=== PATIENT | male | born 1955 | race Caucasian/White ===

== ENCOUNTER → 2019-09-10 16:27 | Outpatient (CLI) | payer OTHER, SELFPAY ==
--- NOTE | ~2019-09-10 | MR_ITS ---
EXAMINATION: MR cervical spine wo [facility] EXAM DATE: 09/10/2019 17:17 INDICATION: Bilateral leg weakness. Arm weakness. Dorsalgia. TECHNIQUE: Multi-sequential, multiplanar MR images of the cervical spine were obtained without contra st. Axial T2, axial T2 MERGE sequence. Sagittal T1, T2, T2 fat saturation images also obtained. Th ere is no prior study for comparison. FINDINGS: There is moderate disc disease at C6-7, mild mid cervical levels above this. The vertebral bodies are aligned in the AP dimension. The spinal cord signal intensity and intrinsic morphology is normal. Cervicomedullary junction is normal in appearance. There are scattered focal signal abnor malities consistent with hemangiomata, otherwise without focal suspicious marrow signal abnormalities . Paraspinal soft tissue is unremarkable. Level by level evaluation: C2-C3: Disc does not extend beyond the endplate margin. Uncovertebral joint arthropathy: None. Facet joint arthropathy: Mild bilateral. Neural foraminal stenosis: No stenosis. Central canal stenosis: No stenosis. C3-C4: There is a mild diffuse disc bulge. Uncovertebral joint arthropathy: Mild bilateral. Facet joint arthropathy: Mild to moderate bilateral. Neural foraminal stenosis: Mild bilateral. Central canal stenosis: No stenosis. C4-C5: Disc does not extend beyond the endplate margin. Uncovertebral joint arthropathy: Mild bilateral. Facet joint arthropathy: Moderate right, mild to moderate left. Neural foraminal stenosis: Mild bilateral. Central canal stenosis: No stenosis. C5-C6: There is a minimal diffuse disc bulge. Uncovertebral joint arthropathy: Mild to moderate bilateral. Facet joint arthropathy: Moderate bilateral. Neural foraminal stenosis: Mild bilateral. Central canal stenosis: No stenosis. C6-C7: There is a mild diffuse disc bulge. Uncovertebral joint arthropathy: Moderate left, mild to moderate right. Facet joint arthropathy: Mild to moderate bilateral. Neural foraminal stenosis: Moderate left, mild to moderate right. Central canal stenosis: Mild. C7-T1: Disc does not extend beyond the endplate margin. Uncovertebral joint arthropathy: Mild to moderate bilateral. Facet joint arthropathy: Mild to moderate bilateral. Neural foraminal stenosis: Mild left. Central canal stenosis: No stenosis. IMPRESSION: C6-7 moderate spondylosis, lesser at other levels. Reviewed, dictated and finalized at location D. HER HAND
== END ==
PROVIDERS: Visit Provider Family Medicine
DX: M47.812 Spondylosis without myelopathy or radiculopathy, cervical region (principal)
CPT/HCPCS: 72141

== ENCOUNTER 2022-02-09 08:59 | Outpatient (CLI) | payer MEDICARE, SELFPAY ==
--- NOTE | ~2022-02-09 | XR_ITS ---
EXAMINATION: XR chest 2V Exam Date/Time: 02/09/2022 9:31 CDT HISTORY: PROSTATE CANCER Comparison: None available. RESULT: Lines, tubes, and devices: None. Lungs and pleura: 6 mm left lower lobe pulmonary nodule. Cardiomediastinal silhouette: Stable cardiomediastinal silhouette. Other: No acute osseous or upper abdominal finding. IMPRESSION: 6 mm left lower lobe pulmonary nodule. Recommend CT of the chest without contrast for further evaluat ion. Reviewed, dictated and finalized at location K. IMPRESSION: 6 mm left lower lobe pulmonary nodule. Recommend CT of the chest without contra st for further evaluation.
--- NOTE | ~2022-02-09 | CT_ITS ---
EXAMINATION: CT abdomen pelvis w con DATE: 02/09/2022 09:58 INDICATION: Prostate cancer TECHNIQUE: Computed tomography (CT) of the abdomen and pelvis was performed with 100 CC Omnipaque 300 intravenous contrast. Automated exposure control and iterative reconstruction technique were employe d. Exam dose: 399.14 mGy-cm total exam DLP. COMPARISON: None. FINDINGS: The lung bases are clear. Normal heart size. No pericardial or pleural effusion. The liver, gallbladder, bile ducts, spleen, pancreas and pancreatic duct are unremarkable. Normal morphology of the adrenal glands. Occasional bilateral renal cysts, the largest on the right measuring approximately 1.3 cm, the larges t on the right approximately 1 cm. No suspicious mass of either kidney is noted. No urinary tract makeda culus or hydroureteronephrosis. There is moderate prostatomegaly and minimal prostate calcification. The urinary bladder appears unre markable. Small bilateral fat-containing inguinal hernias. Normal caliber of the abdominal aorta. No intraperitoneal or retroperitoneal or pelvic mass lesion or adenopathy or ascites. There are some shoddy nonenlarged bilateral inguinal lymph nodes. Diverticulosis of the colon, including multiple diverticula of the colon in the hepatic flexure area primarily. No CT evidence of diverticulitis. No bowel obstruction or intraperitoneal free air. Degenerative spurring of the lower thoracic and to a lesser extent lumbar spine. No suspicious osteol ytic or osteoblastic lesions. IMPRESSION: Occasional bilateral renal cysts Diverticulosis of the colon; no evidence of diverticulitis Moderate prostatomegaly Small bilateral fat-containing inguinal hernias Reviewed, dictated and finalized at Location A. Reviewed, dictated and finalized at location B.
== END 2022-02-09 09:00 | disposition home or self-care (01) ==
PROVIDERS: PCP Family Medicine; Visit Provider Urology
DX: C61 Malignant neoplasm of prostate (principal); N28.1 Cyst of kidney, acquired; K57.90 Diverticulosis of intestine, part unspecified, without perforation or abscess without bleeding; N40.0 Benign prostatic hyperplasia without lower urinary tract symptoms; K40.90 Unilateral inguinal hernia, without obstruction or gangrene, not specified as recurrent; R91.1 Solitary pulmonary nodule
CPT/HCPCS: 71046; 74177; Q9967

== ENCOUNTER 2022-02-25 08:22 | Outpatient (CLI) | payer MEDICARE, SELFPAY ==
--- NOTE | ~2022-02-25 | NM_ITS ---
EXAMINATION: NM bone scan whole body DATE: 02/25/2022 11:52 INDICATION: Prostate cancer TECHNIQUE: 25.6 mCi Tc-99m HDP was administered intravenously. Delayed whole-body scintigrams were o btained. COMPARISON: Chest CT dated 02/25/2022 FINDINGS: Extravasated soft tissue activity at the site of injection at the right wrist. Likely degenerative madison int centered uptake at the bilateral acromioclavicular joints, the cervical facet joints in the right lower cervical spine, the right knee and right first metatarsophalangeal joint. No other suspicious foci of abnormal uptake to suggest osseous metastatic disease. IMPRESSION: 1. Typical pattern of scattered mild likely degenerative joint centered uptake. No lesion suspicious for metastatic disease. Reviewed, dictated and finalized at location B.
--- NOTE | ~2022-02-25 | CT_ITS ---
EXAMINATION: CT diagnostic chest wo con DATE: 02/25/2022 08:50 INDICATION: 6 mm left lower lobe pulmonary nodule reported on 02/09/2022 2 view chest Prostate cancer. TECHNIQUE: Computed tomography (CT) of the chest was performed without intravenous contrast. Automate d exposure control and iterative reconstruction technique were employed. Exam dose: 168.71 mGy-cm to daryl exam DLP. COMPARISON: 2 view chest FINDINGS: There is a 6 Minor calcified nodule in the peripheral aspect of the lingula anterolaterall y, consistent with calcified pulmonary granuloma, corresponding to the 6 mm nodular density noted on the 02/09/2022 chest radiographic examination. Occasional bilateral likely benign small nodules: 2 mm pleural-based nodular density, left upper lobe (series 4 image 29). 2.6 mm pleura-based peripheral left upper lobe nodular density (image 43). 2 mm right lower lobe pulmonary nodule (image 68). 3 mm pleural-based opacity, right lower lobe (image 70). No pulmonary infiltrate or consolidation. No hilar or mediastinal mass lesion or lymphadenopathy. No thoracic aortic aneurysm. Normal heart siz e. No pericardial or pleural effusion. Normal morphology of the adrenal glands. Diffuse idiopathic skeletal hyperostosis of the thoracic spine. No suspicious osteolytic or osteoscle rotic lesions. IMPRESSION: 6 mm benign calcified lingular granuloma; no further follow-up of this lesion is require d Occasional bilateral 3 mm or smaller pulmonary nodules; consider [address] thorax follow-up Reviewed, dictated and finalized at Location A. Reviewed, dictated and finalized at location A. IMPRESSION: 6 mm benign calcified lingular granuloma; no further follow-up of this lesion is required Occasional bilateral 3 mm or smaller pulmonary nodules; consider [address] orax follow-up
== END 2022-02-25 08:23 | disposition home or self-care (01) ==
LOC: ANHIMG 08:28
PROVIDERS: PCP Family Medicine; Visit Provider Urology
DX: C61 Malignant neoplasm of prostate (principal); R91.1 Solitary pulmonary nodule
CPT/HCPCS: 71250; 78306; A9561

== ENCOUNTER 2022-10-14 13:31 | Outpatient (CLI) | payer MEDICARE, SELFPAY ==
[2022-10-14 14:27] LABS: Influenza A QL RT-PCR Negative (Negative); Influenza B QL RT-PCR Negative (Negative); RSV RNA, RT-PCR Negative (Negative); SARS-CoV-2 RNA PCR Negative
== END 2022-10-14 13:32 | disposition home or self-care (01) ==
PROVIDERS: PCP Family Medicine; Visit Provider Family Medicine
DX: R68.89 Other general symptoms and signs (principal); Z20.822 Contact with and (suspected) exposure to COVID-19
CPT/HCPCS: 87637

== ENCOUNTER 2023-11-08 13:45 | Outpatient (CLI) | payer MEDICARE, SELFPAY ==
[2023-11-08 19:45] LABS: Prostate Specific Antigen 7.2 ng/mL (< OR = 4.0)
== END 2023-11-08 13:46 | disposition home or self-care (01) ==
LOC: ANHGOSHLAB 13:48
PROVIDERS: PCP Family Medicine; Visit Provider Urology
DX: C61 Malignant neoplasm of prostate (principal)
CPT/HCPCS: 36415; 84153

== ENCOUNTER 2024-06-03 10:47 | Emergency (ER) | payer MEDICARE, SELFPAY ==
--- NOTE | ~2024-06-03 | XR_ITS ---
Clinical Indication: Cough PA and lateral views of the chest: Comparison: 02/09/2022 Findings: The lungs are clear, without evidence of focal consolidation or pleural effusion. Cardiome diastinal silhouette is within normal limits. Bones and soft tissues are unremarkable. Impression: Normal chest. Reviewed, dictated and finalized at location . Impression: Normal chest.
[2024-06-03 11:10] VITALS: BP 124/65; PULSE 71; RESP 16; TEMP 37.1; O2SAT 99
--- NOTE | 2024-06-03 11:22 | ED.URI ---
HPI - URI/Sore Throat General Chief Complaint: Upper Respiratory Infection Stated Complaint: Upper Respiratory Problems Time Seen by Provider: 06/03/24 11:23 Source: patient, RN notes reviewed and old records reviewed Mode of arrival: ambulatory Limitations: no limitations History of Present Illness HPI Narrative: 69-year-old male presents to the [facility] with complaints a cough and left ear discomfort that started Tuesday or , 3-4 days. No treatment prior to arrival Reports that he has been exposed to pneumonia Onset (ago): day(s) (3-4) Treatments prior to arrival: none Related Data Allergies Allergy/AdvReac Type Severity Reaction Status Date / Time No Known Allergies Allergy Verified 06/03/24 11:01 Review of Systems Review of Systems: All systems reviewed & are unremarkable except as noted in HPI and below Constitutional: Constitutional: Reports no additional constitutional complaints ENT: Reports system reviewed and no additional complaints, except as documented Cardiovascular: Cardiovascular: Reports no additional cardiovascular complaints, Denies chest pain and Denies dyspnea Respiratory: Respiratory: Reports as per HPI, Denies chest congestion, Reports cough and Denies dyspnea Gastrointestinal: Gastrointestinal: Reports no additional gastrointestinal complaints, Denies abdominal pain, Denies nausea and Denies vomiting Musculoskeletal: Musculoskeletal: Reports no additional musculoskeletal complaints Integumentary/Breasts: Skin/Breast: Reports system reviewed and no additional complaints, except as docu PMFSH Past Medical History Medical History Prostate cancer Surgical History Surgical History History of repair of rotator cuff Hx of tonsillectomy Family History Family History Mother Hypertension Father Family history of elevated blood lipids, Onset Age: 76 Malignant neoplasm of prostate, Onset Age: 76 Other Family history of cardiovascular disease No family history of diabetes mellitus No family history of malignant neoplasm Social History Social History Social History: caffeine- none daily Smoking status: Former smoker Tobacco type: cigarettes Alcohol intake: current Alcohol use details: occasionnally Substance use: never Substance use type: does not use Lack of Transportation: No Lack of Food: Never True Current Housing: I Have Housing Concerned About Future Housing: No Difficulty Paying Gas/Electric Bills: No Difficulty Paying for Meds: No Currently Unemployed: YES Education: High School Diploma/GED Difficulty w/ Childcare or Family Care: No Living arrangements: with family Additional living arrangements comments: Additional occupation/education comments: Self employed Gender identity (if verbalized by the patient): Male Sexual Orientation (if Verbalized by the Patient): Straight or Heterosexual Agree to blood products: Yes Comments At the time of my signature, I reviewed and agree with the nursing past medical, surgical, social, and family history. There is no relevant family history pertinent to the patient complaint. Exam Const: General: cooperative, healthy appearing, comfortable, no acute distress, well developed, alert and well nourished Nutritional Appearance: well nourished Orientation/consciousness: patient oriented x3 Limitations: no limitations HENMT: Head: normal to inspection Ears: hearing grossly normal bilaterally, external ears normal, EAC's normal, mastoids normal, no periauricular adenopathy and TM abnormal bulging bilateral and with fluid behind the TM bilateral; not erythematous Face/Nose/Sinus: Normal external nose present, normal facial exam and face symmetric Face and sinu
== END 2024-06-03 11:44 | disposition home or self-care (01) ==
PROVIDERS: Emergency Provider Nurse Practitioner; PCP Family Medicine
DX: J06.9 Acute upper respiratory infection, unspecified (principal); R05.1 Acute cough; Z87.891 Personal history of nicotine dependence; Z85.46 Personal history of malignant neoplasm of prostate
CPT/HCPCS: 71046; 99213; G0463

== ENCOUNTER 2024-06-18 09:48 | Outpatient (CLI) | payer MEDICARE, SELFPAY ==
[2024-06-18 20:29] LABS: Prostate Specific Antigen 7.3 ng/mL (< OR = 4.0)
== END 2024-06-18 09:49 | disposition home or self-care (01) ==
LOC: ANHGOSHLAB 09:50
PROVIDERS: PCP Family Medicine; Visit Provider Urology
DX: C61 Malignant neoplasm of prostate (principal)
CPT/HCPCS: 36415; 84153

== ENCOUNTER 2024-10-10 07:58 | Outpatient (CLI) | payer MEDICARE, SELFPAY ==
--- OUTSIDE RECORDS SUMMARY | 2024-10-10 08:06 | XMS_ITS | Patient Health Summary ---
Author Organization [facility] Address [address] [place] [address] Care Team Providers Care Manipulator Operator Name Role Phone Guillermo Mendoza MD Primary Care Provider [phone] Note from [facility],non-owned Affiliates and Associated Physician Practices is amultiple site organization consisting of ambulatory clinics and hospital sitesin [place], [place], [place] and [place]. This disclosure is being madepursuant to the Care Everywhere program and may not contain all information available regarding this patient. Last updated 18.[facility] Social History Tobacco Use Types Packs/Day Years Used Date Smoking Tobacco: Never Assessed Sex and Gender Information Value Date Recorded Sex Assigned at Not on file Gender Identity Not on file Sexual Orientation Not on file Procedures * PATH CONSULT ON REFERRED CASE(Performed 12/22/2021) Performed for Illness, unspecified Results * PATH CONSULT ON REFERRED CASE (12/22/2021 10:46 AM CDT) Final Diagnosis PROSTATE, LLB, NEEDLE BIOPSY (OSC: [id number], A; 12/22/2021): - Prostatic adenocarcinoma, carter score 3 + 3 = 6 (grade group 1), involving 10% of core length PROSTATE, LLM, NEEDLE BIOPSY (OSC: [id number], B; 12/22/2021): - Benign prostatic tissue PROSTATE, LLA, NEEDLE BIOPSY (OSC: [id number], C; 12/22/2021): - Prostatic adenocarcinoma, carter score 3 + 3 = 6 (grade group 1), discontinuously involving 50% of core length PROSTATE, LB, NEEDLE BIOPSY (OSC: [id number], D; 12/22/2021): - Prostatic adenocarcinoma, carter score 3 + 3 = 6 (grade group 1), involving 10% of core length PROSTATE, LM, NEEDLE BIOPSY (OSC: [id number], E; 12/22/2021): - Benign prostatic tissue PROSTATE, LA, NEEDLE BIOPSY (OSC: [id number], F; 12/22/2021): - Prostatic adenocarcinoma, carter score 3 + 3 = 6 (grade group 1), involving 10% of core length PROSTATE, RB, NEEDLE BIOPSY (OSC: [id number], G; 12/22/2021): - Benign prostatic tissue PROSTATE, RM, NEEDLE BIOPSY (OSC: [id number], H; 12/22/2021): - Benign prostatic tissue PROSTATE, RA, NEEDLE BIOPSY (OSC: [id number], I; 12/22/2021): - Benign prostatic tissue PROSTATE, RLB, NEEDLE BIOPSY (OSC: [id number], J; 12/22/2021): - Prostatic adenocarcinoma, carter score 3 + 3 = 6 (grade group 1), involving 40% of core length PROSTATE, RLM, NEEDLE BIOPSY (OSC: [id number], K; 12/22/2021): - Benign prostatic tissue PROSTATE, RLA, NEEDLE BIOPSY (OSC: [id number], L; 12/22/2021): - Benign prostatic tissue 12/25/2021 4:47 PM [facility] Clinical History PSA 4.0, PROSTATE VOLUME 27.3, T1C 12/25/2021 4:47 PM [facility] Materials Received Received are three prepared slides from [facility] [place] [facility] labeled [id number] (A1-C1). This is a 12-part prostate biopsy. All materials will be returned. 12/25/2021 4:47 PM [facility] Disclaimer The performance characteristics of all immunohistochemical and indirect immunofluorescence stains (if any) cited in this report were determined by the Histopathology Laboratory of [facility]. Some of these tests were developed by our own laboratory and have not been cleared or approved by the US Food and Drug Administration. The FDA does not require this test to go through premarket FDA review. These tests are used for clinical purposes. They should not be regarded as investigational or for research. This laboratory is certified under the Clinical Laboratory Improvement Amendments (CLIA) as qualified to perform high complexity clinical laboratory testing. This case has been personally reviewed and interpreted by the attending (teaching) pathologist. 12/25/2021 4:47 PM CDT [facility] Case Report Surgical Pathology Report Case: [id number] Authorizing Provider: Gema Chandra MD Collected: 12/22/2021 10:46 AM Ordering Location: [facility] Received: 12/25/2021 10:46 AM Pathologist: Louann Sandoval MD Specimen: Slide Consultation 12/25/2021 4:47 PM CDT [facility] Embedded Images 12/25/2021 4:47 PM CDT [facility] Pathology/Cytolo gy SURGICAL PATHOLOGY CONSULTATION AND REPORT ON REFERRED SLIDES PREPARED ELSEWHERE / Unknown 12/22/2021 10:46 AM CDT 12/25/2021 10:46 AM CDT Gema Chandra MD LAB - PATHOLOGY/CYTO LOGY ORDERABLES Performing Organization Address City/State/[facility] Co de Phone Number [facility] [address] [phone] Care Teams Manipulator Operator Relationship Specialty Start Date End Date Guillermo Mendoza MD [address] [place] [address] PCP - General 12/18/21
--- OUTSIDE RECORDS SUMMARY | 2024-10-10 08:06 | XMS_ITS | Clinical Summary ---
Author Organization [facility] Address [address] [place] [id number] Care Team Providers Care Road Machine Operator Name Role Phone None, Provider MD Primary Care Provider Unavaila ble Social History Tobacco Use Types Packs/Day Years Used Date Smoking Tobacco: Never Assessed Sex and Gender Information Value Date Recorded Sex Assigned at Not on file Legal Sex Male 1:38 PM CDT Gender Identity Not on file Sexual Orientation Not on file Plan of Treatment Health Maintenance Due Date Last Done Comments Colorectal Cancer Screening Colonoscopy (10 Years) 1957 Hepatitis C 1975 DTaP, Tdap and Td Vaccines ( 1 - Tdap) 01/18/1976 Zoster Vaccines (1 of 2) 2007 Annual Medicare Wellness Visit 2022 Pneumococcal Vaccine: 65+ Years (1 of 1 - PCV) 2022 COVID-19 Vaccine ( - 2023-2 5 season) 2024 07/10/2021, 11/10/2020, 10/13/2020 Influenza Adult (#1) 2024 06/30/2021, 07/10/2019, 06/09/2018 RSV Immunization or 60+ Years (1 - 1-dose 75+ series) 01/18/2032 Meningococcal B Vaccine Aged Out No l onger eligible based on patient's age to complete this topic Meningococcal Vaccine Aged Out No yarelsi lizbeth eligible based on patient's age to complete this topic RSV Immunizations Under 20 Months Aged Out No longer eligible b ased on patient's age to complete this topic Insurance MEDICARE [facility] Care Teams Road Machine Operator Relationship Specialty Start Date End Date None, Provider, PCP - General 05/05/22
--- OUTSIDE RECORDS SUMMARY | 2024-10-10 08:06 | XMS_ITS | Clinical Summary ---
Author Organization [facility] Address [address] [place] [address] Care Team Providers Care Director Of National Sales Name Role Phone Guillermo Mendoza MD Primary Care Provider [phone] Source Comments [facility],non-owned Affiliates and Associated Physician Practices is amultiple site organization consisting of ambulatory clinics and hospital sitesin [place], [place], [place] and [place]. This disclosure is being madepursuant to the Care Everywhere program and may not contain all information available regarding this patient. Last updated 18.[facility] Social History Tobacco Use Types Packs/Day Years Used Date Smoking Tobacco: Never Assessed Sex and Gender Information Value Date Recorded Sex Assigned at Not on file Gender Identity Not on file Sexual Orientation Not on file Plan of Treatment Health Maintenance Due Date Last Done Comments COLOGUARD (AGES 45-75) - COL ON CA SCREENING 1957 COLON MONITORING 1957 COLONOSCOPY - COLON CA SCREENING 1957 CT COLONOGRAPHY - COLON CA SCREENING 1955 Colorectal Cancer Screening 1957 FIT - COLON CA SCREENING 1957 FLEX SIG - COLON CA SCREENING 1957 LIPID TESTING 1957 HEPATITIS C SCREENING 01/13/1975 DTAP/TDAP/TD VACCINES (1 - Tdap) 01/18/1976 PNEUMOCOCCAL VACCINE 50+ (1 of 1 - PCV) 2007 ZOSTER VACCINE (1 of 2) 2007 COVID-19 VACCINE ( - 2023-2 5 season) 2024 INFLUENZA VACCINE (#1) 2024 DEPRESSION SCREENING 08/15/2024 Respiratory Syncytial Virus (RSV) Vaccine Pt: or over 60 yrs (1 - 1-dose 75+ series) 01/18/2032 HEPATITIS B VACCINE Aged Out No longe r eligible based on patient's age to complete this topic HIB VACCINE Aged Out No longer eligi ble based on patient's age to complete this topic HPV VACCINE Aged Out No longer eligi ble based on patient's age to complete this topic MENINGOCOCCAL (Group B) VACCINE Aged Out No longer eligible based on patient's age to complete this topic MENINGOCOCCAL VACCINE Aged Out No yarelis lizbeth eligible based on patient's age to complete this topic Care Teams Director Of National Sales Relationship Specialty Start Date End Date Guillermo Mendoza MD [address] [place] [address] PCP - General 12/18/21
--- OUTSIDE RECORDS SUMMARY | 2024-10-10 08:06 | XMS_ITS | Encounter Summary ---
Author Organization [facility] Address [address] [place] [address] Care Team Providers Care Admissions Clinician Name Role Phone Guillermo Mendoza MD Primary Care Provider [phone] Encounter Details Date Type Department Care Team (Late st Contact Info) Description 12/25/2021 Lab Requisition [facility] Care Pathology Lab [address] [place] [address] Gema Chandra MD [address] [place], [place] [id number] Illness, unspecified Social History Tobacco Use Types Packs/Day Years Used Date Smoking Tobacco: Never Assessed Sex and Gender Information Value Date Recorded Sex Assigned at Not on file Gender Identity Not on file Sexual Orientation Not on file documented as of this encounter Plan of Treatment Not on file documented as of this encounter Procedures Procedure Name Priority Date/Time Associated Diagnosis Comments PATH CONSULT ON REFERRED CASE Routine 12/22/2021 10:46 AM CDT Illness, unspecified documented in this encounter Results * PATH CONSULT ON REFERRED CASE (12/22/2021 10:46 AM CDT) Final Diagnosis PROSTATE, LLB, NEEDLE BIOPSY (OSC: [id number], A; 12/22/2021): - Prostatic adenocarcinoma, carter score 3 + 3 = 6 (grade group 1), involving 10% of core length PROSTATE, LLM, NEEDLE BIOPSY (OSC: [id number], B; 12/22/2021): - Benign prostatic tissue PROSTATE, LLA, NEEDLE BIOPSY (OSC: [id number], C; 12/22/2021): - Prostatic adenocarcinoma, carter score 3 + 3 = 6 (grade group 1), discontinuously involving 50% of core length PROSTATE, LB, NEEDLE BIOPSY (OSC: [id number], D; 12/22/2021): - Prostatic adenocarcinoma, carter score 3 + 3 = 6 (grade group 1), involving 10% of core length PROSTATE, LM, NEEDLE BIOPSY (OSC: [id number], E; 12/22/2021): - Benign prostatic tissue PROSTATE, LA, NEEDLE BIOPSY (OSC: [id number], F; 12/22/2021): - Prostatic adenocarcinoma, carter score 3 + 3 = 6 (grade group 1), involving 10% of core length PROSTATE, RB, NEEDLE BIOPSY (OSC: [id number], G; 12/22/2021): - Benign prostatic tissue PROSTATE, RM, NEEDLE BIOPSY (OSC: [id number], H; 12/22/2021): - Benign prostatic tissue PROSTATE, RA, NEEDLE BIOPSY (OSC: [id number], I; 12/22/2021): - Benign prostatic tissue PROSTATE, RLB, NEEDLE BIOPSY (OSC: [id number], J; 12/22/2021): - Prostatic adenocarcinoma, carter score 3 + 3 = 6 (grade group 1), involving 40% of core length PROSTATE, RLM, NEEDLE BIOPSY (OSC: [id number], K; 12/22/2021): - Benign prostatic tissue PROSTATE, RLA, NEEDLE BIOPSY (OSC: [id number], L; 12/22/2021): - Benign prostatic tissue 12/25/2021 4:47 PM [facility] Clinical History PSA 4.0, PROSTATE VOLUME 27.3, T1C 12/25/2021 4:47 PM [facility] Materials Received Received are three prepared slides from [facility] labeled [id number] (A1-C1). This is a 12-part prostate biopsy. All materials will be returned. 12/25/2021 4:47 PM [facility] Disclaimer The performance characteristics of all immunohistochemical and indirect immunofluorescence stains (if any) cited in this report were determined by the Histopathology Laboratory of [facility]. Some of these tests were developed by [...] attending (teaching) pathologist. 12/25/2021 4:47 PM CDT [facility] Case Report Surgical Pathology Report Case: [id number] Authorizing Provider: Gema Chandra MD Collected: 12/22/2021 10:46 AM Ordering Location: [facility] Received: 12/25/2021 10:46 AM Pathologist: Louann Sandoval MD Specimen: Slide Consultation 12/25/2021 4:47 PM CDT [facility] Embedded Images 12/25/2021 4:47 PM CDT [facility] Pathology/Cytolo gy SURGICAL PATHOLOGY CONSULTATION AND REPORT ON REFERRED SLIDES PREPARED ELSEWHERE / Unknown 12/22/2021 10:46 AM CDT 12/25/2021 10:46 AM CDT Gema Chandra MD LAB - PATHOLOGY/CYTO LOGY ORDERABLES Performing Organization Address City/State/[facility] Co de Phone Number [facility] [address] [phone] documented in this encounter Visit Diagnoses Diagnosis Illness, unspecified documented in this encounter Care Teams Admissions Clinician Relationship Specialty Start Date End Date Guillermo Mendoza MD [address] [place] [id number] PCP - General 12/18/21 documented as of this encounter
--- OUTSIDE RECORDS SUMMARY | 2024-10-10 08:06 | XMS_ITS | Referral Summary ---
Author Organization [facility] Address [address] [place] [address] Care Team Providers Care Station Installation Supervisor Name Role Phone Guillermo Mendoza MD Primary Care Provider Source Comments [facility],non-owned Affiliates and Associated Physician Practices is amultiple site organization consisting of ambulatory clinics and hospital sitesin [place], [place], [place] and [place]. This disclosure is being madepursuant to the Care Everywhere program and may not contain all information available regarding this patient. Last updated 18.[facility] Social History Tobacco Use Types Packs/Day Years Used Date Smoking Tobacco: Never Assessed Sex and Gender Information Value Date Recorded Sex Assigned at Not on file Gender Identity Not on file Sexual Orientation Not on file Plan of Treatment Not on file Care Teams Station Installation Supervisor Relationship Specialty Start Date End Date Guillermo Mendoza MD [address] [place] [address] PCP - General 12/18/21
[2024-10-10 10:30] LABS: Basophils Percent Auto 0.6 % (0.2-1.2); Eosinophils Absolute Auto 0.2 K/mm3 (0-0.3); Hematocrit 48.1 % (42.0-52.0); Hemoglobin 15.6 g/dL (14.0-18.0); Immature Granulocyte Absolute 0.01 K/mm3 (0.00-0.031); Immature Granulocyte Percent A 0.2 % (0-0.5); Lymphocytes Absolute Auto 1.65 K/mm3 (0.9-3.2); Lymphocytes Percent Auto 31.8 % (18.3-44.2); Mean Corpuscular HGB Conc 32.4 g/dl (32-36); Mean Corpuscular Hemoglobin 29.4 pg (26-34); Mean Corpuscular Volume 90.8 fl (80-100); Mean Platelet Volume 11.6 fl (7.4-10.4); Monocytes Absolute Auto 0.6 K/mm3 (0.1-0.6); Monocytes Percent Auto 11.8 % (2.6-8.5); Neutrophils Absolute Auto 2.7 K/mm3 (1.3-6.7); Neutrophils Percent Auto 51.6 % (45.5-73.1); Platelet Count Result 184 k/mm3 (150-375); Red Cell Distribution Width 12.2 % (11.5-14.5); White Blood Count 5.2 K/mm3 (4.5-10.0)
[2024-10-10 12:02] LABS: Alanine Aminotransferase 44 U/L (6-50); Alkaline Phosphatase 58 U/L (38-126); Anion Gap 8 mmol/L (4-12); Aspartate Amino Transferase 35 U/L (17-59); Bilirubin,Total 0.6 mg/dL (0.2-1.3); Blood Urea Nitrogen 29 mg/dL (9-20); Calcium 9.1 mg/dL (8.4-10.2); Carbon Dioxide 29 mmol/L (22-30); Chloride 103 mmol/L (98-107); Cholesterol 168 mg/dL (0-200); Estimated Glomerular Filt Rate > 60; Glucose 93 mg/dL (65-110); HDL Direct 41 mg/dL; Potassium 4.3 mmol/L (3.4-5.0); Sodium 140 mmol/L (137-145); Triglycerides 86 mg/dL (<150)
[2024-10-10 12:13] LABS: LDL Cholesterol Direct 104 mg/dL
[2024-10-10 19:53] LABS: Hemoglobin A1C 5.4 % (<5.7)
[2024-10-10 20:48] LABS: Vitamin D 25 Hydroxy 26.3 ng/mL
[2024-10-15 16:48] LABS: PSA, Free 0.8 ng/mL; PSA, Total 7.8 ng/mL (< OR = 4.0); Percent Free Prostate Spec Ag 10 % (calc) (>25)
== END 2024-10-10 07:59 | disposition home or self-care (01) ==
PROVIDERS: PCP Family Medicine; Visit Provider Family Medicine
DX: C61 Malignant neoplasm of prostate (principal); E78.5 Hyperlipidemia, unspecified; E53.8 Deficiency of other specified B group vitamins; E55.9 Vitamin D deficiency, unspecified; I10 Essential (primary) hypertension; R73.9 Hyperglycemia, unspecified; Z12.5 Encounter for screening for malignant neoplasm of prostate
CPT/HCPCS: 36415; 80053; 80061; 82306; 82607; 83036; 84153; 84154; 84443; 85025

== ENCOUNTER 2025-06-19 08:15 | Outpatient (CLI) | payer MEDICARE, SELFPAY ==
--- OUTSIDE RECORDS SUMMARY | 2025-06-19 08:23 | XMS_ITS | Clinical Summary ---
Author Organization [facility] Address [address] [place] [address] Care Team Providers Care Qc Chemist Name Role Phone Guillermo Mendoza MD Primary Care Provider [phone] Source Comments [facility],non-owned Affiliates and Associated Physician Practices is amultiple site organization consisting of ambulatory clinics and hospital sitesin [place], [place], [place] and [place]. This disclosure is being madepursuant to the Care Everywhere program and may not contain all information available regarding this patient. Last updated 18.[facility] Social History Tobacco Use Types Packs/Day Years Used Date Smoking Tobacco: Never Assessed Sex and Gender Information Value Date Recorded Sex Assigned at Not on file Legal Sex Male 1:47 PM CDT Gender Identity Not on file [...] 2007 ZOSTER VACCINE (1 of 2) 2007 DEPRESSION SCREENING 08/15/2024 COVID-19 VACCINE (1 - 2023-2 5 season) 2025 INFLUENZA VACCINE (#1) 2025 Respiratory Syncytial Virus (RSV) Vaccine Pt: or [...] to complete this topic MENINGOCOCCAL (Group B) VACC INE SHARED DECISION-MAKING Aged Out No longer eligibl e based on patient's age to complete this topic MENINGOCOCCAL GROUPS A/C/Y/W VACCINE Aged Out No longer eligible b ased on patient's age to complete this topic Care Teams Qc Chemist Relationship Specialty Start Date End Date Guillermo Mendoza MD [address] [place], [place] [id number] PCP - General 12/18/21
--- OUTSIDE RECORDS SUMMARY | 2025-06-19 08:23 | XMS_ITS | Encounter Summary ---
Author Organization [facility] Address [address] [place] [address] Care Team Providers Care Atmospheric Chemist Name Role Phone Guillermo Mendoza MD Primary Care Provider [phone] Encounter Details Date Type Department Care Team (Late st Contact Info) Description 12/25/2021 Lab Requisition [facility] Care Pathology Lab [address] [place] [address] Gema Chandra MD [address] [place], [place] [phone] Illness, unspecified Social History Tobacco Use Types [...] Final Diagnosis PROSTATE, LLB, NEEDLE BIOPSY (OSC: [id number], A; 12/22/2021): - Prostatic adenocarcinoma, carter score 3 + 3 = 6 (grade group 1), involving 10% of core length PROSTATE, LLM, NEEDLE BIOPSY (OSC: [id number], B; 12/22/2021): - Benign prostatic tissue PROSTATE, LLA, NEEDLE BIOPSY (OSC: [id number], C; 12/22/2021): - Prostatic adenocarcinoma, carter score 3 + 3 = 6 (grade group 1), discontinuously involving 50% of core length PROSTATE, LB, NEEDLE BIOPSY (OSC: [id number], D; 12/22/2021): - Prostatic adenocarcinoma, carter score 3 + 3 = 6 (grade group 1), involving 10% of core length PROSTATE, LM, NEEDLE BIOPSY (OSC: [id number], E; 12/22/2021): - Benign prostatic tissue PROSTATE, LA, NEEDLE BIOPSY (OSC: [id number], F; 12/22/2021): - Prostatic adenocarcinoma, carter score 3 + 3 = 6 (grade group 1), involving 10% of core length PROSTATE, RB, NEEDLE BIOPSY (OSC: [id number], G; 12/22/2021): - Benign prostatic tissue PROSTATE, RM, NEEDLE BIOPSY (OSC: [id number], H; 12/22/2021): - Benign prostatic tissue PROSTATE, RA, NEEDLE BIOPSY (OSC: [id number], I; 12/22/2021): - Benign prostatic tissue PROSTATE, RLB, NEEDLE BIOPSY (OSC: [id number], J; 12/22/2021): - Prostatic adenocarcinoma, carter score 3 + 3 = 6 (grade group 1), involving 40% of core length PROSTATE, RLM, NEEDLE BIOPSY (OSC: [id number], K; 12/22/2021): - Benign prostatic tissue PROSTATE, RLA, NEEDLE BIOPSY (OSC: [id number], L; 12/22/2021): - Benign prostatic tissue 12/25/2021 4:47 PM [facility] at 1647 CDT Clinical History PSA 4.0, PROSTATE VOLUME 27.3, T1C 12/25/2021 4:47 PM [facility] Materials Received Received are three prepared slides from [facility] labeled [id number] (A1-C1). This is a 12-part prostate biopsy. All materials will be returned. 12/25/2021 4:47 PM [facility] Disclaimer The performance characteristics of all immunohistochemical and indirect immunofluorescence stains (if any) cited in this report were determined by the Histopathology Laboratory of [facility]. Some of these tests were developed by [...] attending (teaching) pathologist. 12/25/2021 4:47 PM CDT [facility] Case Report Surgical Pathology Report Case: [id number] Authorizing Provider: Gema Chandra MD Collected: 12/22/2021 10:46 AM Ordering Location: [facility] Received: 12/25/2021 10:46 AM Pathologist: Louann Sandoval MD Specimen: Slide Consultation 12/25/2021 4:47 PM CDT [facility] Embedded Images 12/25/2021 4:47 PM CDT [facility] Pathology/Cytolo gy SURGICAL PATHOLOGY CONSULTATION AND REPORT ON REFERRED SLIDES PREPARED ELSEWHERE / Unknown 12/22/2021 10:46 AM CDT 12/25/2021 10:46 AM CDT Gema Chandra MD LAB - PATHOLOGY/CYTOLOGY ORDERAB LES Final Result [facility] [address] [place] [address], [facility] [phone] documented in this encounter Visit Diagnoses Diagnosis Illness, unspecified documented in this encounter Care Teams Atmospheric Chemist Relationship Specialty Start Date End Date Guillermo Mendoza MD [address] [place] [id number] PCP - General 12/18/21 documented as of this encounter
--- OUTSIDE RECORDS SUMMARY | 2025-06-19 08:23 | XMS_ITS | Clinical Summary ---
Author Organization [facility] Address [address] [place] [address] Care Team Providers Care Tricot Knitting Machine Operator Name Role Phone None, Provider [...] Td Vaccines ( 1 - Tdap) 01/18/1976 Pneumococcal Vaccine: 50+ Years (1 of 1 - PCV) 2007 Zoster Vaccines (1 of 2) 2007 Annual Medicare Wellness Visit 2022 COVID-19 Vaccine (4 - 2024-2 6 season) 2025 07/10/2021, 11/10/2020, 10/13/2020 Influenza Adult (#1) 2025 06/30/2021, 07/10/2019, 06/09/2018 RSV Immunization or 60+ Years (1 - 1-dose 75+ series) 01/18/2032 Hepatitis A Vaccines Aged Out No long er eligible based on patient's age to complete this topic Meningococcal B Vaccine Aged Out No l onger eligible based on patient's age to complete this topic Meningococcal Vaccine Aged Out No yarelis lizbeth eligible based on patient's age to complete this topic RSV Immunizations Under 20 Months Aged Out No longer eligible b ased on patient's age to complete this topic Insurance MEDICARE [facility] INS[facility] Care Teams Tricot Knitting Machine Operator Relationship Specialty Start Date End Date None, Provider, PCP - General 05/05/22
[2025-06-19 16:23] LABS: Prostate Specific Antigen 9.6 ng/mL (< OR = 4.0)
== END 2025-06-19 08:16 | disposition home or self-care (01) ==
LOC: ANHGOSHLAB 08:16
PROVIDERS: PCP Family Medicine; Visit Provider Urology
DX: C61 Malignant neoplasm of prostate (principal)
CPT/HCPCS: 36415; 84153

== ENCOUNTER 2025-07-24 08:54 | Outpatient (CLI) | payer MEDICARE, SELFPAY ==
[2025-07-24 15:36] LABS: Prostate Specific Antigen 9.1 ng/mL (< OR = 4.0)
== END 2025-07-24 08:55 | disposition home or self-care (01) ==
PROVIDERS: PCP Family Medicine; Visit Provider Urology
DX: C61 Malignant neoplasm of prostate (principal)
CPT/HCPCS: 36415; 84153

== ENCOUNTER 2025-08-10 12:07 | Emergency (ER) | payer MEDICARE, SELFPAY ==
[2025-08-10 12:50] VITALS: BP 133/7; PULSE 86; RESP 16; TEMP 36.4; O2SAT 98
--- NOTE | 2025-08-10 13:14 | ED.URI ---
HPI - URI/Sore Throat General Chief Complaint: Upper Respiratory Infection Stated Complaint: Coughing, fever, congestion Time Seen by Provider: 08/10/25 13:14 Source: patient and RN notes reviewed Mode of arrival: ambulatory Limitations: no limitations History of Present Illness HPI Narrative: 70-year-old male history of prostate cancer presented for complaint of headache, body aches, sinus pressure/congestion, cough, weakness, fever/chills. Onset yesterday. Denies sob, wheezing, n/v/d. Took Tylenol without improvement. MD elicited complaint: cough Related Data Allergies Allergy/AdvReac Type Severity Reaction Status Date / Time No Known Allergies Allergy Verified 08/10/25 12:46 Review of Systems Review of Systems: per HPI [facility] Past Medical History Medical History Prostate cancer managed with active surveillance Primary osteoarthritis, unspecified site GERD (gastroesophageal reflux disease) Recurrent genital herpes simplex Prostate cancer Surgical History Surgical History Hx of tonsillectomy History of repair of rotator cuff Family History Family History Mother Hypertension Father Family history of elevated blood lipids, Onset Age: 76 Malignant neoplasm of prostate, Onset Age: 78 Other Family history of cardiovascular disease No family history of diabetes mellitus No family history of malignant neoplasm Social History Social History Social History: caffeine- none daily Smoking status: Former smoker Tobacco type: cigarettes Smoking end date: 08/15/84 Alcohol intake: current Alcohol use details: occasionnally Substance use: never Substance use type: does not use Lack of Transportation: No Lack of Food: Never True Current Housing: I Have Housing Concerned About Future Housing: No Difficulty Paying Gas/Electric Bills: No Difficulty Paying for Meds: No Currently Unemployed: YES Education: High School Diploma/GED Difficulty w/ Childcare or Family Care: No Living arrangements: with family Additional living arrangements comments: Additional occupation/education comments: Self employed Gender identity (if verbalized by the patient): Male Sexual Orientation (if Verbalized by the Patient): Straight or Heterosexual Agree to blood products: Yes Exam Narrative: GENERAL: mildly Ill-appearing, nontoxic no acute distress. EYES: conjunctivae clear ENT: Mucous membranes moist. TM pearly ramos with dull light reflex bilaterally; no tragal tenderness. Oropharynx erythematous without lesions or exudate, no drooling, no hoarseness, no trismus, uvula midline. No tripod positioning, muffled voice, soft palate or pharyngeal wall bulging NECK: Supple. No lymphadenopathy CHEST: Clear to auscultation, breath sounds equal. No wheezing, rhonchi, rales, or stridor. No respiratory distress, speaks in full sentences. HEART: Regular rate and rhythm. No murmur heard. SKIN: Warm, dry, no rash. NEURO: Alert and oriented x3. PSYCH: Normal mood and affect Course Course Level of Care: Express Care Visit Vital Signs Vital signs: Vital Signs Temperature 97.5 F L 08/10/25 12:50 Pulse Rate 86 08/10/25 12:50 Respiratory Rate 16 08/10/25 12:50 Blood Pressure 133/7 L 08/10/25 12:50 Pulse Oximetry 98 08/10/25 12:50 Temperature 97.5 F L 08/10/25 12:50 Pulse Rate 86 08/10/25 12:50 Respiratory Rate 16 08/10/25 12:50 Blood Pressure 133/7 L 08/10/25 12:50 Pulse Oximetry 98 08/10/25 12:50 MDM MDM Narrative Medical decision making narrative: positive flu. Discussed physical exam findings. Advised supportive measures and signs/symptoms to go to the ER. Pt is appropriate for outpt treatment and f/u. Differential Diagnosis Differential Diagnosis: influenza, covid, sinusitis, OM, strep pharyngitis, URI Discharge Plan Discharge Clinical Impression: Influenza Patient Disposition: Home Condition: Stable Instructions: Influenza (ED) Additional Instructions: Influenza positive You should avoid crowds until you are fever free for 24 hours without the use of fever reducing medications, or the symptoms are improved Rest. Drink plenty of fluids. Tylenol 1000mg every 8 hours as needed for pain/fever Recommend Flonase spray and Zyrtec (or Claritin/Lori) for sinus pressure/congestion over the counter Cough syrup may cause drowsiness; avoid driving or take it at night time. The most common side effects of Tamiflu (oseltamivir) are?nausea, vomiting, headache, and general pain, often occurring in the first couple of days, with taking it with food helping to reduce stomach issues.? Follow up with your primary care provider as needed in 1 week Go to the ER for worsening symptoms or concerns Patient Language: Vietnamese Prescriptions: New oseltamivir [Tamiflu] 75 mg capsule 75 mg PO Q12H 5 Days Qty: 10 0RF Follow-up/Referrals: Lizette Guan MD [Primary Care Provider, [facility]] Time of Disposition: 13:23
[2025-08-10 13:19] LABS: EDCOVIDSCREEN Negative (Negative); EDINFLUASCREEN Negative (Negative); EDINFLUBSCREEN Positive (Negative)
== END 2025-08-10 13:37 | disposition home or self-care (01) ==
PROVIDERS: Emergency Provider Nurse Practitioner Family; PCP Family Medicine
DX: J10.1 Influenza due to other identified influenza virus with other respiratory manifestations (principal); Z20.822 Contact with and (suspected) exposure to COVID-19; K21.9 Gastro-esophageal reflux disease without esophagitis; M19.90 Unspecified osteoarthritis, unspecified site; Z87.891 Personal history of nicotine dependence
CPT/HCPCS: 87426; 87804; 99213; G0463